=== PATIENT | female | born 1975 | race Caucasian/White ===

== ENCOUNTER 2019-12-27 22:42 | Emergency (ER) | payer OTHER ==
--- NOTE | 2019-12-27 22:55 | ER Document Report ---
ED Medical Screen (RME) - General Chief Complaint: Urinary Problem Stated Complaint: POSSIBLE UTI Time Seen by Provider: 12/27/19 22:53 Notes: HPI: 44-year-old female with history of UTIs presenting with burning and discomfort with urination today. States it feels similar to prior UTIs has not had 1 in the last year. Has nausea no vomiting. No fever. PHYSICAL EXAMINATION: Mildly uncomfortable. Mild tenderness over the suprapubic region on palpation. No CVA tenderness I have greeted and performed a rapid initial assessment of this patient. A comprehensive ED assessment and evaluation of the patient, analysis of test results and completion of medical decision making process will be conducted by an additional ED providers.
[2019-12-27 23:23] LABS: APPEARANCE,URINE SLIGHTLY-CLOUDY; BILIRUBIN,URINE NEGATIVE (NEGATIVE); COLOR,URINE STRAW; GLUCOSE, URINE NEGATIVE (NEGATIVE); KETONES,URINE NEGATIVE (NEGATIVE); LEUKOCYTE ESTERASE,URINE TRACE (NEGATIVE); NITRITE,URINE NEGATIVE (NEGATIVE); PROTEIN,URINE NEGATIVE (NEGATIVE); URINE SPECIFIC GRAVITY 1.016; UROBILINOGEN,URINE NEGATIVE mg/dL (<2.0)
[2019-12-27] MEDS ORDERED: CIPROFLOXACIN HCL 500 MG TABLET PO ONE (23:32)
[2019-12-27] MEDS ORDERED: PHENAZOPYRIDINE HCL 100 MG TABLET PO ONE (23:32)
--- NOTE | 2019-12-28 00:04 | ER Document Report ---
Entered by IZABELLA IRELAND SCRIBE 12/27/19 [id number] Acting as scribe for:EDILBERTO PHELPS DO ED GI/ - General Chief Complaint: Urinary Problem Stated Complaint: POSSIBLE UTI Time Seen by Provider: 12/27/19 22:53 Primary Care Provider: ESPERANZA OCONNOR PA-C [Primary Care Provider] - Follow up as needed Information source: Patient Notes: This 44 year old female patient presents to the emergency department today with complaints of a possible urinary tract infection. Patient states this morning she was okay until she urinated. Patient states there was burning and it has worsened over the day quickly. Patient states it feels like her bladder is full. Patient states she has a history of urinary tract infections. Patient states her menstrual period has just ended. Patient denies any fever, nausea or vomiting. - Related Data Allergies/Adverse Reactions: Iodinated Contrast Media Allergy (Verified 12/27/19 23:01) Home Medications: ZOLOFT Past Medical History - General Information source: Patient - Social History Smoking Status: Never Smoker Cigarette use (# per day): No Family History: Reviewed & Not Pertinent Patient has homicidal ideation: No Review of Systems - Review of Systems Constitutional: See HPI. denies: Fever EENT: No symptoms reported Cardiovascular: No symptoms reported Respiratory: No symptoms reported Gastrointestinal: See HPI. denies: Nausea, Vomiting Genitourinary: See HPI, Burning Female Genitourinary: See HPI Musculoskeletal: No symptoms reported Skin: No symptoms reported Hematologic/Lymphatic: No symptoms reported Neurological/Psychological: No symptoms reported -: Yes All other systems reviewed and negative Physical Exam - Vital signs Vitals: Temp 98.4 F 12/27/19 22:52 - General General appearance: Appears well, Alert - HEENT Head: Normocephalic, Atraumatic Eyes: Normal Pupils: PERRL - Respiratory Respiratory status: No respiratory distress Chest status: Nontender Breath sounds: Normal Chest palpation: Normal - Cardiovascular Rhythm: Regular Heart sounds: Normal auscultation Murmur: No - Abdominal Inspection: Normal Distension: No distension Bowel sounds: Normal Notes: Mild tenderness with palpation to the suprapubic region. - Extremities General upper extremity: Normal inspection. No: Edema General lower extremity: Normal inspection. No: Edema - Neurological Neuro grossly intact: Yes Cognition: Normal Orientation: AAOx4 Speech: Normal - Psychological Associated symptoms: Normal affect, Normal mood - Skin Skin Temperature: Warm Skin Moisture: Dry Skin Color: Normal Course - Re-evaluation Re-evalutation: 12/27/19 23:59 MDM Nontoxic 44 year old female arrives with cystitis. Her vital signs are reasonable and she tells me cipro is what works for her as she has tried other antibiotics by her pcp but they always end up back on cipro. No fever. No flank pain. - Vital Signs Vital signs: Temp Pulse Resp BP Pulse Ox 98.4 F 12/27/19 22:52 - Laboratory Laboratory results interpreted by me: 12/27/19 22:51 Urine Blood MODERATE H Ur Leukocyte Esterase TRACE H Discharge - Discharge Clinical Impression: UTI (urinary tract infection) Qualifiers: Urinary tract infection type: site unspecified Hematuria presence: with hematuria Qualified Code(s): N39.0 - Urinary tract infection, site not specified; R31.9 - Hematuria, unspecified Condition: Good Disposition: HOME, SELF-CARE Instructions: Urinary Anesthetic Agent ([facility]), Urinary Tract Infection ([facility]) Additional Instructions: Plenty of fluids, rest. Take your medicine as directed. Please return here for fever, inability to tolerate the medicine or other concerns. Your blood pressure was elevated here. Perhaps the pain is playing a role, but that should be rechecked by your primary doctor. Prescriptions: Ciprofloxacin HCl [Cipro 500 mg Tablet] 500 mg PO BID #20 tablet Phenazopyridine HCl [Pyridium 200 mg Tablet] 200 mg PO TID #6 tablet Forms: Elevated Blood Pressure Referrals: ESPERANZA OCONNOR PA-C [Primary Care Provider] - Follow up as needed I personally performed the services described in the documentation, reviewed and edited the documentation which was dictated to the scribe in my presence, and it accurately records my words and actions.
[2019-12-28 00:13] VITALS: BP 151/95
== END 2019-12-28 00:13 | disposition home or self-care (01) ==
LOC: ER 22:42
DX: N39.0 Urinary tract infection, site not specified (principal); R31.9 Hematuria, unspecified; R39.198 Other difficulties with micturition; R30.9 Painful micturition, unspecified; Z88.8 Allergy status to other drugs, medicaments and biological substances; Z79.899 Other long term (current) drug therapy
CPT/HCPCS: 99283; 87086; 87088; 81001; J3490